=== PATIENT | female | born 1995 | race Caucasian/White ===

== ENCOUNTER 2016-05-13 21:30 | Emergency (ER) | payer MEDICAID ==
[~2016-05-13] VITALS: Ht 152.4 cm; Wt 57.5 kg
[~2016-05-13 21:30] MED LIST: FERR159T PO
[2016-05-13 22:09] VITALS: Ht 152.4 cm; Wt 57.5 kg
[2016-05-14 02:03] LABS: ADD SCAN DIFF NO
[2016-05-14 02:08] LABS: ABNORMAL IP MESSAGE 1; BASOPHIL # 0.1 10^3/ul (0.0-0.1); BASOPHILS % 0.4 % (0.0-2.0); EOSINOPHILS # 0.5 10^3/ul (0.0-0.5); EOSINOPHILS % 4.1 % (0.0-7.0); HEMOGLOBIN 12.1 g/dl (12.0-16.0); LYMPHOCYTES # 1.9 10^3/ul (0.8-2.9); LYMPHOCYTES % 15.2 % (15.0-51.0); MEAN CORPUSCULAR HEMOGLOBIN 31.8 pg (29.0-33.0); MEAN CORPUSCULAR HGB CONC 35.6 g/dl (32.0-37.0); MEAN CORPUSCULAR VOLUME 89.5 fl (82.0-101.0); MEAN PLATELET VOLUME 10.5 fl (7.4-10.4); MONOCYTE # 1.5 10^3/ul (0.3-0.9); MONOCYTES % 12.1 % (0.0-11.0); NEUTROPHIL # 8.4 10^3/ul (1.6-7.5); NEUTROPHILS % 67.7 % (39.0-77.0); PLATELET COUNT 257 10^3/UL (140-415); RED CELL DISTRIBUTION WIDTH 12.6 % (11.5-14.5); WHITE BLOOD COUNT 12.5 10^3/ul (4.8-10.8)
[2016-05-14 02:19] LABS: POTASSIUM 4.6 mmol/L (3.5-5.1)
[2016-05-14 02:22] LABS: CALCIUM 9.3 mg/dl (8.4-10.2); CREATININE 0.46 mg/dl (0.44-1.00)
[2016-05-14 02:31] LABS: ADD UMIC YES; URINE BILIRUBIN (Dip) NEGATIVE (NEGATIVE); URINE BLOOD (Dip) NEGATIVE (NEGATIVE); URINE COLOR LT. YELLOW (YELLOW); URINE GLUCOSE (Dip) NEGATIVE (NEGATIVE); URINE KETONES (Dip) NEGATIVE (NEGATIVE); URINE LEUKOCYTE ESTERASE (Dip) TRACE (NEGATIVE); URINE NITRITE (Dip) NEGATIVE (NEGATIVE); URINE TOTAL PROTEIN (Dip) NEGATIVE (NEGATIVE); URINE UROBILINOGEN (Dip) 0.2 E.U./dL (0.1-1.0)
[2016-05-14 02:49] LABS: URINE RBCS 0-2 /HPF (0)
[2016-05-14 02:50] LABS: BACTERIA,URINE MODERATE; SQUAMOUS EPITHELIAL CELL,UR MODERATE
--- NOTE | 2016-05-14 02:51 | RADRPT ---
PROCEDURE: ULTRASOUND OBSTETRICAL CLINICAL INDICATION: 20-year-old female with contractions. TECHNIQUE: Multiple sonographic images of the pelvis were obtained. The images were reviewed on a PACS workstation. COMPARISON: No prior studies are available for comparison. FINDINGS: There is a cystic focus within the lower uterine segment/cervix measuring approximately 3.7 x 4.0 x 4.1 cm. The cervix was not well visualized and the length was not measured. There is a single viabl e intrauterine gestation. Cardiac activity is present with 166 beats per minute. There is a variabl e presentation. Measurements were made in order to determine age. The results are as follows: BPD = 3.13 cm, HC = 11.22 cm, AC = 8.80 cm, FL = 1.78 cm. This yields and estimated gestational age of approximately 15 weeks 3 days. The estimated date of delivery is November 02, 2016. The EFW = 117 +/- 18 g. The GP is 18%. The placenta is fundal and anterior. There is no evidence for an abruption or placenta previa. There is an adequate amount of amniotic fluid. IMPRESSION: 1. Single viable intrauterine gestation of approximately 15 weeks 3 days. The estimated date of de livery is November 02, 2016. 2. The cervix length was not measured with a cystic focus of unknown etiology within the lower uter ine segment/cervical region. An incompetent cervix cannot be excluded. .Stef Goss MD, Date Time Electronically viewed and signed by .Stef Goss MD, on 05/14/2016 02:51 .M/
[2016-05-14] MEDS ORDERED: morphine 4 MG/ML VIAL IV STA (02:52)
[2016-05-14 02:58] VITALS: BP 103/63; PULSE 92; RESP 18
--- NOTE | 2016-05-14 02:59 | ERD ---
ER Documentation Chief Complaint Date/Time DATE: 05/14/16 TIME: 02:57 Chief Complaint Back pain radiating to the front for 1 day HPI This is a 20-year-old female who is approximately 15 weeks by last menstrual period who came to the emergency room today for evaluation of abdominal pain. The patient states that she is having back pain which is radiating to the front for 1 days duration. She describes as a cramping achy pain. She denies any nausea or vomiting associated with this, denies any vaginal bleeding or vaginal discharge associated with this. The patient called her SPEECH THERAPIST office who instructed her to come to the emergency room for further evaluation. ROS All systems reviewed and are negative except as per history of present illness. Medications Home Meds Reported Medications Ferrous Sulfate, Dried (Iron) 159 Mg Tablet.er, 159 MG PO DAILY 09/21/12 Allergies Allergies: Coded Allergies: No Known Drug Allergies (Verified Allergy, Mild, 08/23/12) PMhx/Soc History of Surgery: Yes (appendectomy) Anesthesia Reaction: No Hx Neurological Disorder: No Hx Respiratory Disorders: Yes (ASTHMA) Hx Cardiac Disorders: No Hx Psychiatric Problems: No Hx Miscellaneous Medical Probl: No Hx Alcohol Use: No Hx Substance Use: No Hx Tobacco Use: Yes (ex-smoker) Smoking Status: Former smoker Physical Exam Vitals Vital Signs Date Time Temp Pulse Resp B/P Pulse Ox O2 Delivery O2 Flow Rate FiO2 05/13/16 22:09 98.7 109 18 122/58 100 Physical Exam Const: No acute distress, resting comfortably Head: Atraumatic Eyes: Normal Conjunctiva ENT: Normal External Ears, Nose and Mouth. Neck: Full range of motion..~ No meningismus. Resp: Clear to auscultation bilaterally Cardio: Regular rate and rhythm, no murmurs Abd: Soft, non tender, non distended. Normal bowel sounds Skin: No petechiae or rashes Back: No midline or flank tenderness Ext: No cyanosis, or edema Neur: Awake and alert Psych: Normal Mood and Affect Result Diagram: 05/14/16 0154 05/14/164 Results 24 hrs Laboratory Tests Test 05/14/16 01:54 05/14/16 02:02 Anion Gap 17 Basophils # 0.110^3/ul Basophils % 0.4% Blood Urea Nitrogen 7mg/dl Calcium Level 9.3mg/dl Carbon Dioxide Level 26mmol/L Chloride Level 103mmol/L Creatinine 0.46mg/dl Eosinophils # 0.510^3/ul Eosinophils % 4.1% Glucose Level 79mg/dl Hematocrit 34.0% Hemoglobin 12.1g/dl Lymphocytes # 1.910^3/ul Lymphocytes % 15.2% Mean Corpuscular Hemoglobin 31.8pg Mean Corpuscular Hemoglobin Concent 35.6g/dl Mean Corpuscular Volume 89.5fl Mean Platelet Volume 10.5fl Monocytes # 1.510^3/ul Monocytes % 12.1% Neutrophils # 8.410^3/ul Neutrophils % 67.7% Nucleated Red Blood Cells # 0.010^3/ul Nucleated Red Blood Cells % 0.0/100WBC Platelet Count 10325^3/UL Potassium Level 4.6mmol/L Red Blood Count 3.8010^6/ul Red Cell Distribution Width 12.6% Sodium Level 141mmol/L White Blood Count 12.510^3/ul Urine Bacteria MODERATE Urine Bilirubin NEGATIVE Urine Clarity CLEAR Urine Color LT. YELLOW Urine Glucose NEGATIVE% Urine Hemoglobin NEGATIVE Urine Ketones NEGATIVE Urine Leukocyte Esterase TRACE Urine Microscopic RBC 0-2/HPF Urine Microscopic WBC 0-2/HPF Urine Nitrite NEGATIVE Urine Specific [place] 1.025 Urine Squamous Epithelial Cells MODERATE Urine Total Protein NEGATIVE Urine Urobilinogen 0.2 E.U./dL Urine pH 6.0 Current Medications Medications (Trade) Dose Ordered Sig/Nyla Route PRN Reason Start Time Stop Time Status Last Admin Dose Admin Morphine Sulfate (morphine) 4 mg ONCE STAT IV 05/14/16 02:52 05/14/16 02:54 DC Procedures/MDM Transvaginal ultrasound: 1. Single viable intrauterine gestation of approximately 15 weeks 3 days. The estimated date of delivery is November 02, 2016. 2. The cervix length was not measured with a cystic focus of unknown etiology within the lower uterine segment/cervical region. An incompetent cervix cannot be excluded. This 20-year-old female presents to the emergency room for evaluation of abdominal cramping. The patient denied any bleeding. The patient was afebrile in the emergency room, vital signs are stable. Lab work was obtained including a urinalysis which is normal. This patient did have a transvaginal ultrasound which shows a single viable intrauterine gestation of 15 weeks and 3 days. The patient has had no bleeding at this time and has an appointment on November 18 with her SPEECH THERAPIST physician. I advised her to follow-up with SPEECH THERAPIST physician or return to the ER if her symptoms worsen. The patient verbalized understanding and is okay the plan of care. Departure Diagnosis: Primary Impression: Abdominal pain affecting Condition: Stable JOHNATHAN TREVINO DO May 14, 2016 02:59
== END 2016-05-14 03:03 | disposition home or self-care (01) ==
LOC: E/R 21:30
DX: O26.892 Other specified pregnancy related conditions, second trimester (principal); R10.9 Unspecified abdominal pain; O99.52 Diseases of the respiratory system complicating childbirth; J45.901 Unspecified asthma with (acute) exacerbation; Z87.891 Personal history of nicotine dependence; Z3A.15 15 weeks gestation of pregnancy
CPT/HCPCS: 76805; 80048; 81001; 85025; Z7502; 81003

== ENCOUNTER 2016-07-07 06:13 | Outpatient (CLI) | payer MEDICAID ==
[~2016-07-07] VITALS: Ht 149.9 cm; Wt 63.8 kg
[2016-07-07 06:33] VITALS: Ht 149.9 cm; Wt 63.8 kg
[2016-07-07 06:34] VITALS: BP 109/60; PULSE 95; RESP 18
[2016-07-07] MEDS ORDERED: PRENAT PO (09:20)
[2016-07-07 09:21] LABS: ADD SCAN DIFF NO
[2016-07-07] MEDS ORDERED: ALBU2.5V3 NEB (09:21)
[2016-07-07 09:24] LABS: BASOPHILS % 0.2 % (0.0-2.0); EOSINOPHILS # 0.1 10^3/ul (0.0-0.5); EOSINOPHILS % 0.6 % (0.0-7.0); HEMATOCRIT 35.4 % (37.0-47.0); HEMOGLOBIN 11.8 g/dl (12.0-16.0); LYMPHOCYTES # 0.8 10^3/ul (0.8-2.9); LYMPHOCYTES % 5.2 % (15.0-51.0); MEAN CORPUSCULAR HEMOGLOBIN 31.3 pg (29.0-33.0); MEAN CORPUSCULAR HGB CONC 33.3 g/dl (32.0-37.0); MEAN CORPUSCULAR VOLUME 93.9 fl (82.0-101.0); MONOCYTES % 6.1 % (0.0-11.0); NEUTROPHIL # 13.8 10^3/ul (1.6-7.5); PLATELET COUNT 242 10^3/UL (140-415); RED BLOOD COUNT 3.77 10^6/ul (4.20-5.40); RED CELL DISTRIBUTION WIDTH 12.9 % (11.5-14.5); WHITE BLOOD COUNT 16.1 10^3/ul (4.8-10.8)
[2016-07-07] MEDS ORDERED: BECL8.7A INH (09:26)
--- NOTE | 2016-07-07 09:36 | RADRPT ---
PROCEDURE: Limited obstetric ultrasound CLINICAL INDICATION: Pain , labor TECHNIQUE: Multiple transverse and longitudinal grayscale images of the pelvis were obtained gunter sabdominally and transvaginally.. COMPARISON: 05/14/2016 FINDINGS: The cervix is closed with a length of 5 cm. There is a single viable intrauterine gestation. Cardiac activity is present with 156 beats per min alf. There is a breech presentation. The placenta is anterior. There is no evidence for an abruption or placenta previa. RPTAT: AA IMPRESSION: Cervix length measures 5 cm. .Lencho Devries MD, Date Time Electronically viewed and signed by .Lencho Devries MD, on 07/07/2016 09:35 .S/
[2016-07-07 09:54] LABS: ADD UMIC YES; URINE BILIRUBIN (Dip) NEGATIVE (NEGATIVE); URINE BLOOD (Dip) NEGATIVE (NEGATIVE); URINE COLOR LT. YELLOW (YELLOW); URINE GLUCOSE (Dip) NEGATIVE (NEGATIVE); URINE KETONES (Dip) 15 (NEGATIVE); URINE LEUKOCYTE ESTERASE (Dip) TRACE (NEGATIVE); URINE NITRITE (Dip) NEGATIVE (NEGATIVE); URINE TOTAL PROTEIN (Dip) TRACE (NEGATIVE); URINE UROBILINOGEN (Dip) 0.2 E.U./dL (0.1-1.0)
[2016-07-07] MEDS ORDERED: LACTATED RINGER'S 1,000 ML IV ONE (10:00)
[2016-07-07 10:08] LABS: BACTERIA,URINE MANY
[2016-07-07] MEDS ORDERED: LACTATED RINGER'S 1,000 ML IV SCH (11:00)
[2016-07-07] MEDS ORDERED: CEFTRIAXONE 1 GM INJ IM ONE (12:00)
[2016-07-07] MEDS ORDERED: ONDANSETRON 4 MG INJ IV STA (12:03)
[2016-07-07] MEDS ORDERED: FAMOTIDINE 20 MG INJ IV ONE (12:30)
[2016-07-07] MEDS ORDERED: CEFTRIAXONE 1 GM/50 ML (PMX) 50 ML IVPB ONE (12:30)
[2016-07-07] MEDS ORDERED: AL HYDROX/MG HYDROX/SIMETH 30 ML CUP PO ONE (12:30)
[2016-07-07] MEDS ORDERED: SOD CHLORIDE 0.9% 1,000 ML IV SCH (12:30)
[2016-07-07] MEDS ORDERED: MEPERIDINE 50 MG INJ IV ONE (12:30)
--- NOTE | 2016-07-07 12:56 | CONS ---
Date/Time of Note Date/Time of Note DATE: 07/07/16 TIME: 10:40 Consultation Date/Type/Reason Admit Date/Time July 07, 2016 Obstetrical triage consult Reason for Consultation This patient is a 21 years old 2 para 1 with estimated due date of October 28, 2016 which makes her 23 weeks and 6 days now She came in with complaint of vomiting twice last night as well as diarrhea and right upper abdominal area pain. This patient has history of gallstones. PH:She had a ruptured appendix operated on July 2012. She has asthma under treatment with Qvar 40 mg betamethasone dipropionate also albuterol on a as needed basis. She is also taking her vitamins and irons as well .. She said she bought a hot dog in the street and few hours after eating that started having nausea and vomiting. Anyway she has an established diagnosis of cholelithiasis during this On examination she is a well-developed well-nourished lady , complaining of slight tenderness on her right upper quadrant and nausea otherwise . Her abdomen is soft no CVA tenderness. heart tone is selene. She does not have any contractions Laboratory Tests Test 07/07/16 08:49 07/07/16 09:25 White Blood Count 16.110^3/ul Red Blood Count 3.7710^6/ul Hemoglobin 11.8g/dl Hematocrit 35.4% Mean Corpuscular Volume 93.9fl Mean Corpuscular Hemoglobin 31.3pg Mean Corpuscular Hemoglobin Concent 33.3g/dl Red Cell Distribution Width 12.9% Platelet Count 75677^3/UL Mean Platelet Volume 11.0fl Neutrophils % 86.0% Lymphocytes % 5.2% Monocytes % 6.1% Eosinophils % 0.6% Basophils % 0.2% Nucleated Red Blood Cells % 0.0/100WBC Neutrophils # 13.810^3/ul Lymphocytes # 0.810^3/ul Monocytes # 1.010^3/ul Eosinophils # 0.110^3/ul Basophils # 0.010^3/ul Nucleated Red Blood Cells # 0.010^3/ul Urine Color LT. YELLOW Urine Clarity CLEAR Urine pH 6.0 Urine Specific [place] 1.025 Urine Ketones 15 Urine Nitrite NEGATIVE Urine Bilirubin NEGATIVE Urine Urobilinogen 0.2 E.U./dL Urine Leukocyte Esterase TRACE Urine Microscopic RBC 5-10/HPF Urine Microscopic WBC 10-25/HPF Urine Epithelial Cells MANY Urine Bacteria MANY Urine Hemoglobin NEGATIVE Urine Glucose NEGATIVE% Urine Total Protein TRACE Current Medications Medications (Trade) Dose Ordered Sig/Nyla Route PRN Reason Start Time Stop Time Status Last Admin Dose Admin Lactated Ringer's 1,000 ml @ 1,000 mls/hr Q1H ONCE IV 07/07/16 10:00 07/07/16 10:59 07/07/16 10:03 1,000 MLS/HR Lactated Ringer's (Lr) 1,000 ml @ 125 mls/hr Q8H IV 07/07/16 11:00 Constitutional: chills, diaphoresis, disoriented, febrile, improved, no complaints, other, poor po, requiring IVF, requiring O2 Eyes: discharge, no complaints, other, pain, redness, visual change ENT: bleeding, congestion, discharge, dysphagia, no complaints, other, pain, sore throat Respiratory: cough, no complaints, other, pain, pleuritic pain, shortness of breath, sputum, wheezing Cardiovascular: chest pain, edema, lightheadedness, no complaints, orthopenea, other, palpitations, paroxysmal nocturnal dyspnea Gastrointestinal: blood, constipation, decreased appetite, diarrhea, flatus, nausea, no complaints, other (Slight right upper quadrant tenderness), pain, passing stool, vomiting Genitourinary: other (No dysuria no hematuria), No bleeding, No discharge, No dysuria, No flank pain, No hematuria, No no complaints Musculoskeletal: other (Slight tenderness under right CVA area), No back pain, No bone/joint pain, No neck pain, No no complaints, No restricted range of motion, No swelling Skin: No bruising, No erythema, No laceration, No no complaints, No other, No pruritis, No rash, No skin lesions Neurologic: No confusion, No dizziness, No focal-weakness, No headache, No no complaints, No other, No seizure, No syncope Endocrine: No dry skin, No no complaints, No other, No polydypsia, No polyuria , No temp intolerance Lymphatic: No adenopathy, No lymphadema, No no complaints, No other, No tender nodes Psychological: No anxiety, No confusion, No depression, No nl mood/affect, No no complaints, No other, No suicidal Additional Comments Today her urine test was reported normal no evidence of infection or hematuria. Her CBC is normal except for slight anemia; hemoglobin of 11.8 hematocrit 35.4 RBC 3.77 . . On ultrasound study her cervical length is 5 cm. There is a single viable intrauterine gestation with normal cardiac activity 156 bpm in breech presentation ,placenta is anterior no evidence of abruption or previa These findings were discussed with the patient and she was offered either to go home and continue her care by her logistics management specialist's or we can send her down to emergency room to be reevaluated for cholelithiasis . She decided to go home at this time. Social History Smoking Status: Never smoker Exam/Review of Systems Vital Signs Vitals Vital Signs Date Time Temp Pulse Resp B/P Pulse Ox O2 Delivery O2 Flow Rate FiO2 07/07/16 06:34 98.9 95 18 109/60 Results Result Diagram: 07/07/16 0849 Results 24 hrs Laboratory Tests Test 07/07/16 08:49 07/07/16 09:25 White Blood Count 16.1 #H Red Blood Count 3.77 L Hemoglobin 11.8 L Hematocrit 35.4 L Mean Corpuscular Volume 93.9 Mean Corpuscular Hemoglobin 31.3 Mean Corpuscular Hemoglobin Concent 33.3 Red Cell Distribution Width 12.9 Platelet Count 242 Mean Platelet Volume 11.0 H Neutrophils % 86.0 H Lymphocytes % 5.2 L Monocytes % 6.1 Eosinophils % 0.6 Basophils % 0.2 Nucleated Red Blood Cells % 0.0 Neutrophils # 13.8 H Lymphocytes # 0.8 Monocytes # 1.0 H Eosinophils # 0.1 Basophils # 0.0 Nucleated Red Blood Cells # 0.0 Urine Color LT. YELLOW Urine Clarity CLEAR Urine pH 6.0 Urine Specific [place] 1.025 Urine Ketones 15 Urine Nitrite NEGATIVE Urine Bilirubin NEGATIVE Urine Urobilinogen 0.2 E.U./dL Urine Leukocyte Esterase TRACE H Urine Microscopic RBC 5-10 Urine Microscopic WBC 10-25 Urine Epithelial Cells MANY Urine Bacteria MANY Urine Hemoglobin NEGATIVE Urine Glucose NEGATIVE Urine Total Protein TRACE Medications Medications Current Medications Lactated Ringer's 1,000 ml @ 1,000 mls/hr Q1H ONCE IV Last administered on t 10:03; Admin Dose 1,000 MLS/HR; Start 07/07/16 at 10:00; Stop 07/07/16 at 10:59 Lactated Ringer's (Lr) 1,000 ml @ 125 mls/hr Q8H IV ; Start 07/07/16 at 11:00 CARLITA DUQUE MD July 07, 2016 12:51
[2016-07-07 16:50] VITALS: BP 124/62; PULSE 71; RESP 18
--- NOTE | 2016-07-07 17:30 | QN ---
Documentation Comment 21 y/o female at 23 weeks C/O onset of N/V and R upper quadrant pain started after ingestion of hot dog last PM. patient was unable to keep food down: has known case of gallstones . On exam patient did not have contractions and had mild R upper quadrant pain. Cx: closed Had WBC of 16 K with L shift Patient symptoms resolved by Rocephin and PO Mylanta and Pepcid Currently is able to keep food down will D/C home on low fat diet and Mylanta and Pepcid and PO Keflex LARS GONZALES MD July 07, 2016 17:30
--- NOTE | 2016-07-07 17:38 | TRIAGE ---
OB Triage Datetime Report Generated by CPN: 07/07/2016 17:38 Datetime: 07/07/2016 16:40 Stage of : OB Triage Datetime: 07/07/2016 15:15 Stage of : OB Triage Datetime: 07/07/2016 14:45 Stage of : OB Triage Datetime: 07/07/2016 14:00 Stage of : OB Triage Datetime: 07/07/2016 13:00 Stage of : OB Triage Datetime: 07/07/2016 12:00 Stage of : OB Triage Datetime: 07/07/2016 10:40 Stage of : OB Triage Datetime: 07/07/2016 10:30 Stage of : OB Triage Temperature Route: Oral Datetime: 07/07/2016 10:03 Stage of : OB Triage Pain Assessment Pain Scale: 6 Pain Presence: Constant Pain Type: Ache Pain Location: RUQ Pain Goal: 0 Pain Relief Measures: Comfort Measures (Annotations: IV HYDRATION) Datetime: 07/07/2016 09:30 Stage of : OB Triage Nausea/Vomiting: Present (Annotations: VOMITED 500 MLS OF WATER GIVEN) Datetime: 07/07/2016 09:25 Stage of : OB Triage Datetime: 07/07/2016 08:07 Stage of : OB Triage Datetime: 07/07/2016 08:00 Stage of : OB Triage Labor Evaluation Frequency: 0 Monitor Mode: External Resting Tone [place]: Relaxed Heart Rate FHR Baseline Rate: 150 Monitor Mode: External US Variability: Moderate 6-25 bpm Accelerations: 10X10 Decelerations: None Comments: APPROPRIATE FOR GA Pain Assessment Pain Scale: 7 Pain Presence: Constant Pain Type: Ache Pain Location: Abdomen Pain Goal: 0 Pain Relief Measures: Comfort Measures Pain Assessment Comments: PAIN IS EPIGASTRIC Datetime: 07/07/2016 07:00 Stage of : OB Triage Temperature Route: Oral Labor Evaluation Frequency: 0 Monitor Mode: External Resting Tone [place]: Relaxed Heart Rate FHR Baseline Rate: 150 Monitor Mode: External US Variability: Moderate 6-25 bpm Accelerations: 10X10 Decelerations: None Category: Category I Pain Assessment Pain Scale: 7 Pain Presence: Constant Pain Type: Cramping (Annotations: DIARRHEA, VOMITING, HX OF GALLSTONES) Pain Location: Abdomen Pain Relief Measures: Comfort Measures Datetime: 07/07/2016 06:30 Time of Arrival: 07/07/2016 06:10 EGA: 23.6 Arrived By: Wheelchair Arrived From: Home Chief Complaint: DIARRHEA, VOMITING X2 AT HOME(0300, 0530), GALLSTONES, ABD PAIN; ATE A HOT DOG TH AT SHE BOUGHT IN THE STREET FROM VENDOR LAST NIGHT AT 1830 Movement: Present Contractions: Denies/Absent Rupture of Membranes: Denies Vaginal Discharge: Denies Recent Sexual Intercouse: Denies Abdominal Trauma: Not Applicable Patient Complaints: Nausea; Vomiting; Epigastric Pain Additional Patient Complaints: HX OF ASTHMA Initial Plan: EFM, ASSESSMENT, CALL MD FOR ORDERS, MD IN DELIVERY Datetime: 07/07/2016 06:25 Assessment Type: Triage Maternal Assessment Level of Consciousness: Fully Conscious DTR's/Clonus: DTRs 2+; No Clonus Headache: Denies Blurred Vision: No Respiratory Effort: Unlabored; Regular Rhythm; Equal Expansion Breath Sounds, Left: Clear and Equal Breath Sounds, Right: Clear and Equal Nausea/Vomiting: Denies RUQ Epigastric Pain: Denies Lower Extremities Edema: None Upper Extremities Edema: None Facial Edema: None Fall Risk Assessment History of Falling: (0) No Secondary Diagnosis: (0) No Ambulatory Aid: (0) Bedrest/Nurse Assist IV Therapy: (0) No Gait: (0) Normal/Bedrest/Immobile Mental Status: (0) Oriented to Own Ability Fall Score: 0 Fall Risk Score Definition: No Risk: No action required
== END 2016-07-07 17:30 | disposition home or self-care (01) ==
LOC: L-D 06:13 → OBT 06:13
PROVIDERS: ATTEND Obstetrics & Gynecology
DX: O21.2 Late vomiting of pregnancy (principal); R10.11 Right upper quadrant pain; R19.7 Diarrhea, unspecified; O99.612 Diseases of the digestive system complicating pregnancy, second trimester; K80.20 Calculus of gallbladder without cholecystitis without obstruction; O60.02 Preterm labor without delivery, second trimester; O32.1XX0 Maternal care for breech presentation, not applicable or unspecified; Z3A.23 23 weeks gestation of pregnancy
CPT/HCPCS: 76817; 81001; 81003; 85025; 87086; J0696; J2175; J2405; J7030; J7120; Z7610

== ENCOUNTER 2016-09-25 15:20 | Outpatient (CLI) | payer MEDICAID ==
[~2016-09-25] VITALS: Ht 149.9 cm; Wt 71.4 kg
[~2016-09-25 15:20] MED LIST changes: +ALBU2.5V3 NEB; +BECL8.7A INH; +PRENAT PO
[2016-09-25 15:30] VITALS: Ht 149.9 cm; Wt 71.4 kg
[2016-09-25 15:31] VITALS: BP 109/65; PULSE 108
[2016-09-25] MEDS ORDERED: LACTATED RINGER'S 250 ML IV ONE (17:00)
--- NOTE | 2016-09-25 17:27 | RADRPT ---
PROCEDURE: OB ultrasound for biophysical profile CLINICAL INDICATION: Decreased movement. TECHNIQUE: Multiple sonographic images of the pelvis were obtained. Transabdominal view of the gr avid uterus are available for review. The images were reviewed on a PACS workstation. COMPARISON: None FINDINGS: breathing movement = 2/2 tone = 2/2 motion = 2/2 Quantitative amniotic fluid volume = 2/2 PETER = 13.1 cm Single live intrauterine with cardiac activity at 161 beats per minute. There is a anterior placenta without previa. IMPRESSION: 1. Single living intrauterine gestation in cephalic position. 2. Biophysical profile = 10/04. 3. PETER = 13.1 cm. RPTAT: AACC Physician Kalpana Date Time Electronically viewed and signed by Physician Kalpana on 09/25/2016 17:27 /
--- NOTE | 2016-09-25 19:13 | PN ---
Triage Information Date/Time September 25, 2016 Weeks of Gestation 35w 2d : 2 Para: 1 Diabetes: none Hypertention: none Additional information Came in for decreased movement and cramping. PMHx: Asthma. Gallstones. PSHx: Appendectomy. NKDA. Objective Vital Signs Date Time Temp Pulse Resp B/P Pulse Ox O2 Delivery O2 Flow Rate FiO2 09/25/16 15:31 98.4 108 109/65 Room Air Heart Rate: 150's Heart Rate Comments Baseline 150 bpm with accels to 170 bpm. No decels. No UC's. Contractions: None Results/Medications Imaging Results BPP 8/8. PETER 13.1 cm. Assessment/Plan A: IUP at 35w 2d. Decreased FM. P: After one liter of IVF's the baby had a much better tracing with better variability. D/C pt home. D/W pt pt the importance of hydration when it is hot outside. Keep appt at the clinic tomorrow as scheduled. NAZ HASSAN MD Sep 25, 2016 19:13
--- NOTE | 2016-09-25 19:46 | TRIAGE ---
OB Triage Datetime Report Generated by CPN: 09/25/2016 19:46 Datetime: 09/25/2016 19:17 Time of Arrival: 09/25/2016 15:15 EGA: 35.2 Arrived By: Wheelchair Arrived From: Home Chief Complaint: Decreased movement Cramping Movement: Decreased Contractions: Occasional Rupture of Membranes: Denies Vaginal Bleeding: None Vaginal Discharge: Denies Recent Sexual Intercouse: Denies Abdominal Trauma: Not Applicable Patient Complaints: Cramping; Other Time Provider Notified: 09/25/2016 15:48 Provider Notified: J CARLOS Initial Plan: BPP, PETER, IV HYDRATION Datetime: 09/25/2016 18:58 Labor Evaluation Frequency: ONE NOTED IN ONE HOUR Monitor Mode: External Duration (sec)2399: 70 Pattern: Normal: <= 5 Contractions in 10 Minutes Resting Tone [place]: Relaxed Contraction Comments: ABDOMEN SOFT TO PALPATION Heart Rate FHR Baseline Rate: 145 Monitor Mode: External US FHR Baseline Changes: No Baseline Change Variability: Moderate 6-25 bpm Accelerations: 15X15 Decelerations: None Category: Category I Datetime: 09/25/2016 17:57 Labor Evaluation Frequency: ONE NOTED IN ONE HOUR Monitor Mode: External Duration (sec)2399: 70 Pattern: Normal: <= 5 Contractions in 10 Minutes Resting Tone [place]: Relaxed Heart Rate FHR Baseline Rate: 140 Monitor Mode: External US FHR Baseline Changes: No Baseline Change Variability: Moderate 6-25 bpm Accelerations: 15X15 Decelerations: None Category: Category I Datetime: 09/25/2016 16:57 Labor Evaluation Frequency: ONE NOTED IN ONE HOUR Monitor Mode: External Duration (sec)2399: 70 Pattern: Normal: <= 5 Contractions in 10 Minutes Resting Tone [place]: Relaxed Contraction Comments: SOME SCATTERED IRRITABILITY. PT DENIES FEELING ANY DISCOMFORT AT THIS TIME. ABDOMEN SOFT TO PALPATION Heart Rate FHR Baseline Rate: 140 Monitor Mode: External US FHR Baseline Changes: No Baseline Change Variability: Moderate 6-25 bpm Accelerations: 15X15 Decelerations: None Category: Category I Datetime: 09/25/2016 15:55 Labor Evaluation Frequency: 0 Monitor Mode: External Duration (sec)2399: 0 Pattern: Normal: <= 5 Contractions in 10 Minutes Resting Tone [place]: Relaxed Contraction Comments: ABDOMEN SOFT TO PALPATION Heart Rate FHR Baseline Rate: 150 Monitor Mode: External US FHR Baseline Changes: No Baseline Change Variability: Moderate 6-25 bpm Accelerations: 15X15 Decelerations: Early Category: Category I Datetime: 09/25/2016 15:29 Assessment Type: Triage Maternal Assessment Level of Consciousness: Fully Conscious DTR's/Clonus: DTRs 2+; No Clonus Headache: Denies Blurred Vision: No Respiratory Effort: Unlabored; Regular Rhythm; Equal Expansion Breath Sounds, Left: Clear and Equal Breath Sounds, Right: Clear and Equal Nausea/Vomiting: Denies RUQ Epigastric Pain: Denies Lower Extremities Edema: None Degree: None Upper Extremities Edema: None Degree: None Facial Edema: None Fall Risk Assessment History of Falling: (0) No Secondary Diagnosis: (0) No Ambulatory Aid: (0) Bedrest/Nurse Assist IV Therapy: (0) No Gait: (0) Normal/Bedrest/Immobile Mental Status: (0) Oriented to Own Ability Fall Score: 0 Fall Risk Score Definition: No Risk: No action required Datetime: 07/07/2016 14:50 Time of Arrival: 09/25/2016 15:15 EGA: 35.2 Arrived By: Wheelchair Arrived From: Home Chief Complaint: DFM AND CRAMPING Movement: Decreased Contractions: Occasional Rupture of Membranes: Denies Vaginal Bleeding: None Vaginal Discharge: Denies Recent Sexual Intercouse: Denies Abdominal Trauma: Not Applicable Patient Complaints: Cramping Additional Patient Complaints: NONE Time Provider Notified: 09/25/2016 14:05 Provider Notified: J CARLOS Initial Plan: NST Datetime: 07/07/2016 06:30 EGA: 23.6 Datetime: 07/07/2016 06:25 Fall Score: 0 Fall Risk Score Definition: No Risk: No action required
== END 2016-09-25 19:40 | disposition home or self-care (01) ==
LOC: OBT 15:20 → L-D 15:21 → OBT 19:40
PROVIDERS: ATTEND Obstetrics & Gynecology
DX: O36.8130 Decreased fetal movements, third trimester, not applicable or unspecified (principal); Z3A.35 35 weeks gestation of pregnancy; R25.2 Cramp and spasm; O26.893 Other specified pregnancy related conditions, third trimester
CPT/HCPCS: 36415; 76818; 96360; J7120; Z7500; G0463

== ENCOUNTER 2016-10-10 14:04 | Outpatient (CLI) | payer MEDICAID ==
[~2016-10-10] VITALS: Ht 149.9 cm; Wt 73.9 kg
[2016-10-10 14:54] VITALS: Ht 149.9 cm; Wt 73.9 kg
[2016-10-10 14:55] VITALS: BP 107/58; PULSE 77
--- NOTE | 2016-10-10 15:36 | PN ---
Triage Information Date/Time October 10, 2016 Reason for visit: Uterine contractions Weeks of Gestation 37 /Para 2/para 1 Diabetes: none Hypertention: none Additional information Complaining of onset of uterine contractions this morning denies rupture of membranes or vaginal Objective Vital Signs Date Time Temp Pulse Resp B/P Pulse Ox O2 Delivery O2 Flow Rate FiO2 10/10/16 14:55 98.5 77 107/58 Heart Rate: 140's Heart Rate Comments Reactive Contractions: >10 Minutes Apart Exam Long/ closed Disposition: Discharge Assessment/Plan Patient was discharged home with labor precautions to return in case of excessive vaginal bleeding and no ruptured mental LARS GONZALES MD Oct 10, 2016 15:35
== END 2016-10-10 15:48 | disposition home or self-care (01) ==
LOC: OBT 14:04 → L-D 14:05 → OBT 15:48
PROVIDERS: ATTEND Obstetrics & Gynecology
DX: O62.9 Abnormality of forces of labor, unspecified (principal); Z3A.37 37 weeks gestation of pregnancy
CPT/HCPCS: G0463

== ENCOUNTER 2016-10-24 18:01 | Inpatient (IN) | payer MEDICAID ==
[~2016-10-24] VITALS: Ht 154.9 cm; Wt 76.4 kg
--- NOTE | 2016-10-24 20:11 | RADRPT ---
PROCEDURE: Obstetrical ultrasound for biophysical profile CLINICAL INDICATION: Biophysical profile. . TECHNIQUE: Obstetrical ultrasound of the uterus for biophysical profile. Transabdominal views are obtained. COMPARISON: 09/25/2016 FINDINGS: Single intrauterine gestation. Presentation: Cephalic. Placenta: Anterior. No evidence of placental abruption. No evidence of placenta previa. breathing movement = 2/2 tone = 2/2 motion = 2/2 PETER = 2/2 PETER = 10.6 cm heart rate: 142 beats per minute IMPRESSION: Single intrauterine gestation. Biophysical profile 10/04 RPTAT: AADD .Toy Reyes MD, MD Date Time Electronically viewed and signed by .Toy Reyes MD, on 10/24/2016 20:10 .B/
--- NOTE | 2016-10-24 21:13 | HP ---
Date/Time of Note Date/Time of Note DATE: 10/24/16 TIME: 21:11 OB - History Hx of Present Free Text/Dictation Complaint of spontaneous rupture of membrane term Estimated Due Date: Oct 28, 2016 : 2 Para: 1 Care: Good Care Ultrasounds: Normal mid trimester US Obstetrical Complications: None Medical Complications: None Past Family/Social History * Past Medical, Surgical, Family and Obstetric Histories reviewed from chart. OB Admission Exam Physical Exam HEENT: WNL Heart: Rhythm Normal Lungs: Clear, Equal Abdomen: WNL Extremities: Normal Reflexes: Normal Cervical Dilatation: 4cm Effacement: 50% Station: -3 Membranes: Intact Amniotic Fluid: Clear Heart Rate: 130's Accelerations: Accelerations Present Decelerations: No Decelerations Varibility: Moderate Contractions on Admission: < 5 Minutes Apart OB Assessment/Plan Other Assessment: Term gestation Pains Plan: Expectant Management Other plan: Seated with spontaneous labor LARS GONZALES MD Oct 24, 2016 9:13 pm
[2016-10-24] MEDS ORDERED: OXYTOCIN 30 UNITS/LR 500 ML IV SCH ×2 (22:00)
[2016-10-24] MEDS ORDERED: METHYLERGONOVINE 0.2 MG INJ IM PRN (22:00)
[2016-10-24] MEDS ORDERED: BUTORPHANOL 2 MG INJ IV PRN (22:00)
[2016-10-24] MEDS ORDERED: IBUPROFEN 600 MG TAB PO PRN (22:00)
[2016-10-24] MEDS ORDERED: AMPICILLIN 2 GM/NS (PMX) 100 ML IV ONE (22:00)
[2016-10-24] MEDS ORDERED: CARBOPROST 250 MCG INJ IM PRN (22:00)
[2016-10-24] MEDS ORDERED: LIDOCAINE 1% (MPF) 30 ML INJ INJ PRN (22:00)
[2016-10-24] MEDS ORDERED: OXYTOCIN 30 UNITS/LR 500 ML IV PRN (22:00)
[2016-10-24] MEDS ORDERED: MISOPROSTOL 200 MCG TAB PR PRN (22:00)
[2016-10-24] MEDS: LACTATED RINGER'S 1,000 ML IV SCH (22:02)
[2016-10-24 22:19] LABS: BASOPHILS % 0.3 % (0.0-2.0); EOSINOPHILS # 0.1 10^3/ul (0.0-0.5); EOSINOPHILS % 1.1 % (0.0-7.0); HEMATOCRIT 33.3 % (37.0-47.0); LYMPHOCYTES # 1.7 10^3/ul (0.8-2.9); LYMPHOCYTES % 14.1 % (15.0-51.0); MEAN CORPUSCULAR HEMOGLOBIN 28.4 pg (29.0-33.0); MEAN PLATELET VOLUME 11.2 fl (7.4-10.4); MONOCYTES % 8.2 % (0.0-11.0); NEUTROPHILS % 75.5 % (39.0-77.0); PLATELET COUNT 250 10^3/UL (140-415); RED BLOOD COUNT 3.87 10^6/ul (4.20-5.40); RED CELL DISTRIBUTION WIDTH 14.1 % (11.5-14.5)
[2016-10-24 22:34] LABS: INR 0.97; PARTIAL THROMBOPLASTIN TIME 24.7 Sec (25.0-35.0); PROTIME 12.9 Sec (12.2-14.2)
[2016-10-24] MEDS ORDERED: MINERAL OIL LIGHT 10 ML VIAL TOP ONE (23:00)
[2016-10-24] MEDS ORDERED: LACTATED RINGER'S 1,000 ML IV PRN (23:00)
[2016-10-24 23:19] VITALS: BP 109/63; PULSE 76; RESP 18
[2016-10-24 23:41] VITALS: Ht 154.9 cm; Wt 76.4 kg
[2016-10-25] MEDS ORDERED: LACTATED RINGER'S 1,000 ML IV PRN
[2016-10-25] MEDS ORDERED: LIDOCAINE 1% (MPF) 30 ML INJ INJ PRN (00:30)
[2016-10-25] MEDS ORDERED: IBUPROFEN 600 MG TAB PO PRN (00:30)
[2016-10-25] MEDS ORDERED: OXYTOCIN 30 UNITS/LR 500 ML IV SCH ×3 (00:30→13:00)
[2016-10-25] MEDS ORDERED: FENTAnyl 2MCG/ML-ROPIV 0.2% 100 ML ONE (00:44)
[2016-10-25 01:38] LABS: BARBITURATES Negative (NEGATIVE); BENZODIAZEPINES Negative (NEGATIVE); CANNABINOIDS Negative (NEGATIVE); COCAINE Negative (NEGATIVE); OPIATES Negative (NEGATIVE)
[2016-10-25] MEDS ORDERED: AMPICILLIN 1 GM/NS (PMX) 50 ML IV SCH (02:00)
--- NOTE | 2016-10-25 02:23 | TRIAGE ---
OB Triage Datetime Report Generated by CPN: 10/25/2016 02:23 Datetime: 10/25/2016 01:59 Labor Evaluation Frequency: 2-6 Monitor Mode: External Duration (sec)2399: 40-210 Quality: Moderate Pattern: Normal: <= 5 Contractions in 10 Minutes Resting Tone [place]: Relaxed Contraction Comments: UC COUPLING NOTED Heart Rate FHR Baseline Rate: 130 Monitor Mode: External US FHR Baseline Changes: No Baseline Change Variability: Moderate 6-25 bpm Accelerations: 15X15 Decelerations: None Category: Category I Datetime: 10/25/2016 01:56 Monitor Mode: External US Datetime: 10/25/2016 01:46 Monitor Mode: External US Datetime: 10/25/2016 01:43 Monitor Mode: External Monitor Mode: External US Datetime: 10/25/2016 01:35 Monitor Mode: External Monitor Mode: External US Datetime: 10/25/2016 01:02 Pain Presence: None/Denies Datetime: 10/25/2016 01:00 Labor Evaluation Frequency: 2-5 Monitor Mode: External Duration (sec)2399: 60-100 Quality: Moderate Pattern: Normal: <= 5 Contractions in 10 Minutes Resting Tone [place]: Relaxed Heart Rate FHR Baseline Rate: 130 Monitor Mode: External US FHR Baseline Changes: No Baseline Change Variability: Moderate 6-25 bpm Accelerations: 15X15 Decelerations: None Category: Category I Datetime: 10/25/2016 00:07 Pain Assessment Pain Scale: 7 Pain Presence: Intermittent Pain Type: Contraction Pain Location: Abdomen Pain Goal: 0 Pain Relief Measures: Comfort Measures Datetime: 10/25/2016 00:00 Labor Evaluation Frequency: 1-4 Monitor Mode: External Duration (sec)2399: 60-180 Quality: Moderate Pattern: Normal: <= 5 Contractions in 10 Minutes Resting Tone [place]: Relaxed Heart Rate FHR Baseline Rate: 130 Monitor Mode: External US Variability: Moderate 6-25 bpm Accelerations: 15X15 Decelerations: None Category: Category I Datetime: 10/24/2016 23:47 Vaginal Exam Dilatation (cms): 4.0 Effacement (%): 60 Station: -2 Exam By: DR WHITMAN Datetime: 10/24/2016 23:19 Assessment Type: Admission Assessment Maternal Assessment Level of Consciousness: Fully Conscious DTR's/Clonus: DTRs 2+; No Clonus Headache: Denies Blurred Vision: No Respiratory Effort: Unlabored; Regular Rhythm; Equal Expansion Breath Sounds, Left: Clear and Equal Breath Sounds, Right: Clear and Equal Nausea/Vomiting: Denies RUQ Epigastric Pain: Denies Lower Extremities Edema: Bilateral Lower Extremities Degree: 1+ Upper Extremities Edema: Bilateral Upper Extremities Degree: 1+ Facial Edema: None Fall Risk Assessment History of Falling: (0) No Secondary Diagnosis: (0) No Ambulatory Aid: (0) Bedrest/Nurse Assist IV Therapy: (20) Yes Gait: (0) Normal/Bedrest/Immobile Mental Status: (0) Oriented to Own Ability Fall Score: 20 Fall Risk Score Definition: No Risk: No action required Pain Assessment Pain Scale: 8 Pain Presence: Intermittent Pain Type: Contraction Pain Location: Abdomen Pain Goal: 0 Datetime: 10/24/2016 23:15 Time of Arrival: 10/24/2016 23:15 EGA: 39.3 Arrived By: Ambulatory Arrived From: TRIAGE Datetime: 10/24/2016 21:03 Stage of : Labor Labor Evaluation Frequency: 3-5 Monitor Mode: External Quality: Moderate Pattern: Normal: <= 5 Contractions in 10 Minutes Resting Tone [place]: Relaxed Heart Rate FHR Baseline Rate: 150 Monitor Mode: External US Variability: Moderate 6-25 bpm Accelerations: 15X15 Decelerations: None Category: Category I Vaginal Exam Dilatation (cms): 3.5 Effacement (%): 60 Station: -2 Exam By: Dr Whitman Membrane Status: Intact Vaginal Bleeding: None Cervix, Consistency: Soft Cervix, Position: Posterior Presentation 'A': Cephalic Datetime: 10/24/2016 20:46 Stage of : OB Triage Datetime: 10/24/2016 20:19 Stage of : OB Triage Labor Evaluation Frequency: 3-4 Monitor Mode: External Duration (sec)2399: 60 Quality: Moderate Pattern: Normal: <= 5 Contractions in 10 Minutes Resting Tone [place]: Relaxed Heart Rate FHR Baseline Rate: 140 Monitor Mode: External US FHR Baseline Changes: No Baseline Change Variability: Moderate 6-25 bpm Accelerations: 15X15 Decelerations: Late; Variable Category: Category II Pain Presence: Intermittent Pain Type: Contraction Pain Location: Abdomen Datetime: 10/24/2016 19:20 Stage of : OB Triage Labor Evaluation Frequency: 2-5 Monitor Mode: External Duration (sec)2399: 60 Quality: Moderate Pattern: Normal: <= 5 Contractions in 10 Minutes Resting Tone [place]: Relaxed Heart Rate FHR Baseline Rate: 140 Monitor Mode: External US FHR Baseline Changes: No Baseline Change Variability: Moderate 6-25 bpm Accelerations: 15X15 Decelerations: Late; Variable Category: Category II Pain Assessment Pain Scale: 3 Pain Presence: Intermittent Pain Type: Contraction Pain Location: Abdomen Vaginal Exam Dilatation (cms): 2.5 Effacement (%): 50 Station: -3 Exam By: S Liv Membrane Status: Intact Vaginal Bleeding: None Cervix, Consistency: Soft Cervix, Position: Posterior Presentation 'A': Cephalic Datetime: 10/24/2016 18:56 Stage of : OB Triage Datetime: 10/24/2016 18:39 Stage of : OB Triage Assessment Type: Triage Maternal Assessment Level of Consciousness: Fully Conscious DTR's/Clonus: DTRs 2+; No Clonus Headache: Denies Blurred Vision: No Respiratory Effort: Unlabored; Regular Rhythm; Equal Expansion Breath Sounds, Left: Clear and Equal Breath Sounds, Right: Clear and Equal Nausea/Vomiting: Denies RUQ Epigastric Pain: Denies Facial Edema: None Temperature Route: Axillary Fall Risk Assessment History of Falling: (0) No Secondary Diagnosis: (0) No Ambulatory Aid: (0) Bedrest/Nurse Assist IV Therapy: (0) No Gait: (0) Normal/Bedrest/Immobile Mental Status: (0) Oriented to Own Ability Fall Score: 0 Fall Risk Score Definition: No Risk: No action required Labor Evaluation Frequency: X1 Monitor Mode: External Duration (sec)2399: 50 Quality: Mild Pattern: Normal: <= 5 Contractions in 10 Minutes Resting Tone [place]: Relaxed Heart Rate FHR Baseline Rate: 145 Monitor Mode: External US Variability: Moderate 6-25 bpm Decelerations: None Pain Assessment Pain Scale: 0 Pain Presence: None/Denies Pain Type: N/A Pain Goal: 3 Pain Relief Measures: Comfort Measures Datetime: 10/10/2016 15:46 Time of Arrival: 10/24/2016 17:55 EGA: 39.3 Arrived By: Ambulatory Arrived From: Home Chief Complaint: C/O POSS SROM AT 1630, DENIES BLEEDING, OR UC'S Movement: Present Contractions: Denies/Absent Rupture of Membranes: Denies Vaginal Bleeding: None Vaginal Discharge: Denies Recent Sexual Intercouse: Denies Abdominal Trauma: Not Applicable Patient Complaints: None Initial Plan: MONITOR, ROM PLUS, NITRAZINE Datetime: 10/10/2016 15:26 Stage of : OB Triage Datetime: 10/10/2016 15:11 Stage of : OB Triage Datetime: 10/10/2016 14:48 Stage of : OB Triage Assessment Type: Triage Maternal Assessment Level of Consciousness: Fully Conscious DTR's/Clonus: DTRs 2+; No Clonus Headache: Denies Blurred Vision: No Respiratory Effort: Unlabored; Regular Rhythm; Equal Expansion Breath Sounds, Left: Clear and Equal Breath Sounds, Right: Clear and Equal Nausea/Vomiting: Denies RUQ Epigastric Pain: Denies Facial Edema: None Temperature Route: Axillary Fall Risk Assessment History of Falling: (0) No Secondary Diagnosis: (0) No Ambulatory Aid: (0) Bedrest/Nurse Assist IV Therapy: (0) No Gait: (0) Normal/Bedrest/Immobile Mental Status: (0) Oriented to Own Ability Fall Score: 0 Fall Risk Score Definition: No Risk: No action required Labor Evaluation Frequency: 0 Monitor Mode: External Pattern: Normal: <= 5 Contractions in 10 Minutes Resting Tone [place]: Relaxed Heart Rate FHR Baseline Rate: 150 Monitor Mode: External US Variability: Moderate 6-25 bpm Decelerations: None Category: Category II Pain Assessment Pain Scale: 5 Pain Presence: Intermittent Pain Type: Cramping; Contraction Pain Location: Abdomen; Back Pain Goal: 3 Pain Relief Measures: Comfort Measures Vaginal Exam Dilatation (cms): 0.0 Effacement (%): 50 Station: -2 Exam By: Good VANCE Datetime: 10/10/2016 14:46 Time of Arrival: 10/10/2016 14:00 EGA: 37.3 Arrived By: Ambulatory Arrived From: Home Chief Complaint: C/O UC'S ALL WEEKEND, DENIES LEAKING OR BLEEDING OF FLUID Movement: Present Contractions: Irregular Rupture of Membranes: Denies Vaginal Bleeding: None Vaginal Discharge: Denies Recent Sexual Intercouse: Denies Abdominal Trauma: Not Applicable Patient Complaints: Contractions; Cramping Time Provider Notified: 10/10/2016 15:30 Provider Notified: J CARLOS Initial Plan: MONITOR, VE Datetime: 09/25/2016 19:17 EGA: 35.2 Datetime: 09/25/2016 15:29 Fall Score: 0 Fall Risk Score Definition: No Risk: No action required Datetime: 07/07/2016 14:50 EGA: 35.2 Datetime: 07/07/2016 06:30 EGA: 23.6 Datetime: 07/07/2016 06:25 Fall Score: 0 Fall Risk Score Definition: No Risk: No action required
[2016-10-25] MEDS ORDERED: NALOXONE (0.4 MG/ML) INJ IV PRN (03:00)
[2016-10-25] MEDS: LACTATED RINGER'S 1,000 ML IV SCH ×3 (03:30→14:18)
[2016-10-25] MEDS: FENTAnyl 2MCG/ML-ROPIV 0.2% 100 ML BAG EPI SCH ×3 (03:30→14:02)
[2016-10-25] MEDS ORDERED: DIPHENHYDRAMINE 50 MG INJ IV PRN (05:00)
[2016-10-25] MEDS ORDERED: MINERAL OIL LIGHT 10 ML VIAL TOP ONE (11:00)
--- NOTE | 2016-10-25 15:52 | LDN ---
Date/Time of Note Date/Time of Note DATE: 10/25/16 TIME: 15:50 Delivery Summary Normal spontaneous vaginal delivery of viable infant over intact perineum Weeks of Gestation 39+ Placenta Delivered: Spontaneously, Intact & Complete Meconium: none Episiotomy: No Perineal laceration: 0 Anesthesia type: Epidural Estimated blood loss: 16531 Sponge & Needle done & correct: Yes All needle counts correct: Yes Any foreign bodies felt in the: No Problems: Infant Delivery Information Sex Sex: female Apgars 1 Minute: 8 5 Minute: 9 Suctioning Nose & mouth suctioned at oneil: Yes Delee suction performed: No Umbilical Cord Umbilical cord with: 3 Vessels Cord presentations: no nuchal cord Cord Blood was obtained: Yes Mother & Baby Disposition Disposition Mom & Baby to Maternity; Good: Yes (Mother and baby were recovered in good condition) Mom transferred to: Other (30 T) Baby to NICU: No LARS GONZALES MD Oct 25, 2016 15:52
[2016-10-25 17:44] VITALS: BP 91/53; PULSE 59; RESP 20
[2016-10-25 17:50] VITALS: BP 91/53; PULSE 59; RESP 20
[2016-10-25] MEDS ORDERED: CARBOPROST 250 MCG INJ IM PRN (18:00)
[2016-10-25] MEDS ORDERED: HYDROCODONE/APAP (5/325) TAB PO PRN ×2 (18:00)
[2016-10-25] MEDS ORDERED: OXYTOCIN 30 UNITS/LR 500 ML IV PRN (18:00)
[2016-10-25] MEDS ORDERED: LANOLIN 7 GM TUBE TOP PRN (18:00)
[2016-10-25] MEDS ORDERED: ALBUTEROL 0.083% (NEB) 2.5 MG/3 ML AMP NEB PRN (18:00)
[2016-10-25] MEDS ORDERED: WITCH HAZEL/GLYCERIN PAD PR PRN (18:00)
[2016-10-25] MEDS ORDERED: DIBUCAINE 1% 30 GM OINT PR PRN (18:00)
[2016-10-25] MEDS ORDERED: ZOLPIDEM 5 MG TAB PO PRN (18:00)
[2016-10-25] MEDS ORDERED: METHYLERGONOVINE 0.2 MG INJ IM PRN (18:00)
[2016-10-25] MEDS ORDERED: MISOPROSTOL 200 MCG TAB PR PRN (18:00)
[2016-10-25] MEDS ORDERED: BENZOCAINE 20% 56 ML SPRAY TOP PRN (18:00)
[2016-10-25] MEDS: IBUPROFEN 600 MG TAB PO SCH (18:09)
[2016-10-25] MEDS: CEPHALEXIN 500 MG CAP PO SCH (18:09)
[2016-10-25] MEDS: LACTATED RINGER'S 1,000 ML IV* SCH (19:30)
[2016-10-25 20:00] VITALS: BP 106/59; PULSE 71; RESP 18
[2016-10-25] MEDS: MOMETASONE 0.24 GM INHALER INH SCH (21:00)
[2016-10-26] MEDS: IBUPROFEN 600 MG TAB PO SCH ×5 (00:24→23:39)
[2016-10-26] MEDS: SENNA/DOCUSATE NA (8.6MG/50MG) TAB PO SCH ×3 (00:24→21:00)
[2016-10-26] MEDS: MAGNESIUM HYDROXIDE 30ML CUP PO SCH ×3 (00:24→21:00)
[2016-10-26] MEDS: CEPHALEXIN 500 MG CAP PO SCH ×5 (00:24→23:39)
[2016-10-26 04:43] VITALS: BP 88/56; PULSE 65; RESP 17
[2016-10-26 08:00] VITALS: BP 92/55; PULSE 60; RESP 16
[2016-10-26] MEDS: MOMETASONE 0.24 GM INHALER INH SCH ×2 (08:38→21:00)
[2016-10-26] MEDS: LACTATED RINGER'S 1,000 ML IV* SCH ×2 (08:39→17:37)
[2016-10-26 11:53] LABS: BASOPHILS % 0.2 % (0.0-2.0); EOSINOPHILS # 0.2 10^3/ul (0.0-0.5); EOSINOPHILS % 1.2 % (0.0-7.0); HEMATOCRIT 30.7 % (37.0-47.0); HEMOGLOBIN 10.3 g/dl (12.0-16.0); LYMPHOCYTES # 1.9 10^3/ul (0.8-2.9); LYMPHOCYTES % 11.5 % (15.0-51.0); MEAN CORPUSCULAR HEMOGLOBIN 29.3 pg (29.0-33.0); MEAN CORPUSCULAR HGB CONC 33.6 g/dl (32.0-37.0); MEAN CORPUSCULAR VOLUME 87.5 fl (82.0-101.0); MEAN PLATELET VOLUME 11.4 fl (7.4-10.4); MONOCYTE # 1.3 10^3/ul (0.3-0.9); MONOCYTES % 8.1 % (0.0-11.0); NEUTROPHILS % 78.4 % (39.0-77.0); PLATELET COUNT 216 10^3/UL (140-415); RED BLOOD COUNT 3.51 10^6/ul (4.20-5.40); RED CELL DISTRIBUTION WIDTH 14.1 % (11.5-14.5); WHITE BLOOD COUNT 16.1 10^3/ul (4.8-10.8)
[2016-10-26 12:20] VITALS: BP 96/51; PULSE 57; RESP 16
--- NOTE | 2016-10-26 14:14 | DS ---
Date/Time of Note Date/Time of Note Home today or next day DATE: 10/26/16 TIME: 14:13 Obstetrical Discharge Record Final Diagnosis Final Diagnosis: Term delivered (Status post vaginal delivery) Other Final Diagnosis Status post vaginal delivery Vaginal Delivery Obstetrical Delivery: Spontaneous Complications Augmentation: Yes Condition on Discharge Physical Assessment Last Vitals: See nurse's notes Voiding: Yes Bowel Movement: Yes Breast: Soft, non-tender, Filling Fundus: Firm Abdomen and Incision: Soft bowel sounds present Episiotomy: Not applicable Perineum is clean Calf Tenderness: No Patient Condition: Good LARS GONZALES MD Oct 26, 2016 14:14
--- NOTE | 2016-10-26 14:15 | PD.PPDC ---
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
[2016-10-26] MEDS ORDERED: IBUP-1542 PO (14:16)
[2016-10-26 16:00] VITALS: BP 109/54; PULSE 68; RESP 16
[2016-10-26 20:10] VITALS: BP 106/54; PULSE 66; RESP 18
[2016-10-27 04:20] VITALS: BP 100/55; PULSE 136; RESP 18
[2016-10-27] MEDS: IBUPROFEN 600 MG TAB PO SCH ×2 (06:14→12:41)
[2016-10-27] MEDS: CEPHALEXIN 500 MG CAP PO SCH ×2 (06:14→12:41)
[2016-10-27 09:00] VITALS: BP 108/69; PULSE 71; RESP 20
[2016-10-27] MEDS: MOMETASONE 0.24 GM INHALER INH SCH (09:00)
[2016-10-27] MEDS: MAGNESIUM HYDROXIDE 30ML CUP PO SCH ×2 (09:00→09:28)
[2016-10-27] MEDS ORDERED: MEASLES,MUMPS,RUBELLA VACCINE INJ SC* ONE (09:00)
[2016-10-27] MEDS: SENNA/DOCUSATE NA (8.6MG/50MG) TAB PO SCH ×2 (09:00→09:28)
[2016-10-27] MEDS ORDERED: DIPHTH/TET/ACEL PERTUSS (ADULT) 0.5 ML VIAL IM* ONE (09:00)
[2016-10-27] MEDS ORDERED: VARICELLA VACCINE LIVE/PF 1,350 UNIT/0.5 ML ML SC* ONE (09:00)
== END 2016-10-27 15:30 | disposition home or self-care (01) | DRG 775 ==
LOC: L-D 18:01 → OBT 18:01 → L-D 18:26 → OBT 20:48 → L-D 10-25 00:40 → EDSTATUS 10-25 10:00 → PP1 10-25 17:29
PROVIDERS: ADMIT Obstetrics & Gynecology; ATTEND Obstetrics & Gynecology
PROC: 10E0XZZ Delivery of Products of Conception, External Approach (ICD-10-PCS; principal; 2016-10-25 10:00)
DX: O80 Encounter for full-term uncomplicated delivery (principal); Z37.0 Single live birth; Z3A.39 39 weeks gestation of pregnancy
CPT/HCPCS: 36415; 62319; 76818; 80307; 84112; 85025; 85610; 85730; 86592; 86900; 86901; 87340; 90715; 90716; 99464; G0463; J2590; J3010; J7120

== ENCOUNTER 2018-01-08 17:00 | Inpatient (IN) | END 2018-01-11 16:20 | disposition home or self-care (01) | DRG 392 ==

== ENCOUNTER 2018-07-06 09:20 | Emergency (ER) | payer MEDICAID ==
[~2018-07-06] VITALS: Ht 154.9 cm; Wt 83.6 kg
[~2018-07-06 09:20] MED LIST changes: +IBUP-1542 PO; +LOPE-123 PO
[2018-07-06 09:24] VITALS: BP 112/66; PULSE 68; RESP 20; Ht 154.9 cm; Wt 83.6 kg
[2018-07-06] MEDS ORDERED: NPH10OT BOTH EARS (10:09)
--- NOTE | 2018-07-06 10:14 | ERD ---
ER Documentation Chief Complaint Chief Complaint bilateral ear pain HPI 23-year-old female presents with complaint of bilateral ear pain for the past week. States that she was diagnosed with otitis media 1 week ago and treated with course of Augmentin, finished the course yesterday. Denies any discharge from her ear, mastoid tenderness, fevers, headaches. Denies medical problems. Denies allergies. ROS All systems reviewed and are negative except as per history of present illness. Medications Home Meds Active Scripts Neomycin/Polymyxin/Hydrocort* (Cortisporin* Otic) 10 Ml Susp, 4 DROP BOTH EARS QID for otitis externa, #1 EA Prov:SADIE RESENDIZ 07/06/18 Loperamide Hcl* (Loperamide Hcl*) 2 Mg Cap, 2 MG PO Q4H WHILE AWAKE PRN for DIARRHEA, #14 CAP Prov:YOGESH BRUNER MD 01/11/18 Ibuprofen* (Ibuprofen*) 600 Mg Tablet, 600 MG PO Q6, #30 TAB 0 Refills Prov:LARS GONZALES MD 10/26/16 Reported Medications Beclomethasone Dip* (Qvar 40*) 7.3 Gm Inha, 2 PUFF INH BID, #1 INHALER 07/07/16 Albuterol Sulfate* (Albuterol Sulfate* Neb) 0.083%-3 Ml Neb, 2.5 MG NEB Q3H PRN for WHEEZING AND SOB, #30 VIAL 07/07/16 Multivit/Min/Fol Ac/Iron/Pren* ( S*) 1 Tab Tab, 1 TAB PO DAILY, TAB 07/07/16 Ferrous Sulfate, Dried (Iron) 159 Mg Tablet.er, 159 MG PO DAILY 09/21/12 Allergies Allergies: Coded Allergies: No Known Drug Allergies (Verified Allergy, Mild, 07/07/16) PMhx/Soc 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 TMs are nonedematous erythematous bilaterally. Mastoids are nontender to palpation without edema or erythema bilaterally. Ear canals are erythematous with mild edema bilaterally. There are no exudates. Neck: Full range of motion. No meningismus. Resp: Clear to auscultation bilaterally Cardio: Regular rate and rhythm, no murmurs Abd: Soft, non tender, non distended. Normal bowel sounds Skin: No petechiae or rashes Back: No midline or flank tenderness Ext: No cyanosis, or edema Neur: Awake and alert Psych: Normal Mood and Affect Procedures/MDM MDM: Patient's presentation is consistent with bilateral otitis externa. There is no evidence of otitis media at this time based on patient exam. In addition patient just finished a course of Augmentin I do not feel that another course is necessary. Patient will be treated with Cortisporin drops. I low suspicion for mastoiditis, malignant otitis externa, or any other emergent condition. Patient discharged with strict ER precautions. Patient advised to follow up with PMD. All questions answered at discharge. Departure Diagnosis: Primary Impression: Otitis externa Otitis externa type: unspecified type Chronicity: acute Laterality: bilateral Qualified Codes: H60.503 - Unspecified acute noninfective otitis externa, bilateral Condition: Stable Patient Instructions: External Ear Infection (Adult) Referrals: [facility] YOU HAVE RECEIVED A MEDICAL SCREENING EXAM AND THE RESULTS INDICATE THAT YOU DO NOT HAVE A CONDITION THAT REQUIRES URGENT TREATMENT IN THE EMERGENCY DEPARTMENT. FURTHER EVALUATION AND TREATMENT OF YOUR CONDITION CAN WAIT UNTIL YOU ARE SEEN IN YOUR DOCTORS OFFICE WITHIN THE NEXT 1-2 DAYS. IT IS YOUR RESPONSIBILITY TO MAKE AN APPOINTMENT FOR FOL-UP CARE. IF YOU HAVE A PRIMARY DOCTOR --you should call your primary doctor and schedule an appointment IF YOU DO NOT HAVE A PRIMARY DOCTOR YOU CAN CALL OUR PHYSICIAN REFERRAL HOTLINE AT IF YOU CAN NOT AFFORD TO SEE A PHYSICIAN YOU CAN CHOSE FROM THE FOLLOWING [facility] [address] [facility]. [facility] [address] [facility] [facility] [address] [facility] [facility] [address] [facility] [address] [facility]. [facility]. [address] Additional Instructions: FOLLOW UP WITH YOUR PRIMARY CARE PHYSICIAN TOMORROW.Return to this facility if you are not improving as expected. SADIE RESENDIZ July 06, 2018 10:14
== END 2018-07-06 10:18 | disposition home or self-care (01) ==
LOC: FTE 09:20
DX: H60.503 Unspecified acute noninfective otitis externa, bilateral (principal); J45.909 Unspecified asthma, uncomplicated; Z87.891 Personal history of nicotine dependence
CPT/HCPCS: 99282

== ENCOUNTER 2018-08-21 17:39 | Emergency (ER) | payer MEDICAID ==
[~2018-08-21] VITALS: Ht 154.9 cm; Wt 80.6 kg
[~2018-08-21 17:39] MED LIST changes: +NPH10OT BOTH EARS
[2018-08-21 17:53] VITALS: Ht 154.9 cm; Wt 80.6 kg
[2018-08-21] MEDS ORDERED: ONDA4TAB14 PO (22:33)
[2018-08-21] MEDS ORDERED: AMOX500C2 PO (22:33)
--- NOTE | 2018-08-21 22:39 | ERD ---
ER Documentation Chief Complaint Chief Complaint sore throat x3 days HPI 23-year-old female with past medical history of mild asthma who presents with complaint of sore throat over the past 3 days. Also reported subjective fevers, cough that is nonproductive and intermittent nausea as well as epigastric abdominal discomfort. Sore throat made worse by coughing. Epigastric abdominal pain described as dull achy type pain which is improved over the past day. States she has a history of strep pharyngitis and treated 3 months ago. She otherwise is without complaint denying shortness of breath, dyspnea, chest pain, urinary symptoms, flank pain, diarrhea. ROS All systems reviewed and are negative except as per history of present illness. Medications Home Meds Active Scripts Cephalexin* (Keflex*) 500 Mg Capsule, 500 MG PO BID for 10 Days, CAP Prov:LORENA LUJAN PA-C 08/21/18 Ondansetron (Ondansetron Odt) 4 Mg Tab.rapdis, 4 MG PO Q6H PRN for NAUSEA AND/OR VOMITING, #10 TAB Prov:LORENA LUJAN PA-C 08/21/18 Neomycin/Polymyxin/Hydrocort* (Cortisporin* Otic) 10 Ml Susp, 4 DROP BOTH EARS QID for otitis externa, #1 EA Prov:SADIE RESENDIZ 07/06/18 Loperamide Hcl* (Loperamide Hcl*) 2 Mg Cap, 2 MG PO Q4H WHILE AWAKE PRN for DIARRHEA, #14 CAP Prov:YOGESH BRUNER MD 01/11/18 Ibuprofen* (Ibuprofen*) 600 Mg Tablet, 600 MG PO Q6, #30 TAB 0 Refills Prov:LARS GONZALES MD 10/26/16 Reported Medications Beclomethasone Dip* (Qvar 40*) 7.3 Gm Inha, 2 PUFF INH BID, #1 INHALER 07/07/16 Albuterol Sulfate* (Albuterol Sulfate* Neb) 0.083%-3 Ml Neb, 2.5 MG NEB Q3H PRN for WHEEZING AND SOB, #30 VIAL 07/07/16 Multivit/Min/Fol Ac/Iron/Pren* ( S*) 1 Tab Tab, 1 TAB PO DAILY, TAB 07/07/16 Ferrous Sulfate, Dried (Iron) 159 Mg Tablet.er, 159 MG PO DAILY 09/21/12 Allergies Allergies: Coded Allergies: No Known Drug Allergies (Verified Allergy, Mild, 07/07/16) PMhx/Soc 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 ) Anesthesia Reaction: No Hx Neurological Disorder: No Hx Respiratory Disorders: Yes (Asthma ) Hx Cardiac Disorders: No Hx Psychiatric Problems: No Hx Miscellaneous Medical Probl: No Hx Alcohol Use: No Hx Substance Use: No Hx Tobacco Use: No (ex-smoker) Smoking Status: Never smoker FmHx Family History: No diabetes, No coronary disease, No other Physical Exam Vitals Vital Signs Date Temp Pulse Resp B/P (MAP) Pulse Ox O2 O2 Flow FiO2 Time Delivery Rate 08/21/18 99.1 67 20 133/77 97 17:53 (95) Physical Exam Const: No acute distress Head: Atraumatic Eyes: Normal Conjunctiva ENT: Normal External Ears, Nose and Mouth. Neck: Full range of motion. No meningismus. Resp: Clear to auscultation bilaterally Cardio: Regular rate and rhythm, no murmurs Abd: Soft and obese, non tender, non distended. Normal bowel sounds. Skin: No petechiae or rashes Back: No midline or flank tenderness Ext: No cyanosis, or edema Neur: Awake and alert Psych: Normal Mood and Affect Results 24 hrs Laboratory Tests Test 08/21/18 22:48 Urine Color YELLOW Urine Clarity CLOUDY Urine pH 6.0 Urine Specific [place] 1.015 Urine Ketones 2+ mg/dL Urine Nitrite NEGATIVE mg/dL Urine Bilirubin NEGATIVE mg/dL Urine Urobilinogen NEGATIVE mg/dL Urine Leukocyte Esterase 2+ Melisa/ul Urine Microscopic RBC 5 /HPF Urine Microscopic WBC 22 /HPF Urine Squamous Epithelial Cells MODERATE /HPF Urine Bacteria FEW /HPF Urine Mucus MODERATE /HPF Urine Hemoglobin 2+ mg/dL Urine Glucose NEGATIVE mg/dL Urine Total Protein NEGATIVE mg/dl Current Medications Medications Dose Sig/Nyla Start Time Status Last (Trade) Ordered Route PRN Stop Time Admin Dose Reason Admin 10 mg ONCE ONCE 08/21/18 DC 08/21/18 Dexamethasone IM 23:00 22:49 (Decadron) 08/21/18 23:01 Procedures/MDM 23 yo pt presenting with worsening of sore throat with reassuring exam. Symptoms likely secondary to strep pharyngitis given exam. No history of immunocompromise. Nontoxic appearance. Patient euvolemic with no trismus and no airway compromise. Able to tolerate PO. 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 She has complaint of epigastric mariusz pain but has a reassuring exam without any tenderness to palpation area indicated. UA plus leukocyte esterase, bacteria Discharge with a course of Keflex antibiotic for 10-day course to treat both UTI as well as presumed strep pharyngitis Plan to DC home with prompt outpatient PCP follow up; return precautions discussed Departure Diagnosis: Primary Impression: Sore throat Condition: Stable Patient Instructions: Self-Care for Sore Throats Referrals: [facility] YOU HAVE RECEIVED A MEDICAL SCREENING EXAM AND THE RESULTS INDICATE THAT YOU DO NOT HAVE A CONDITION THAT REQUIRES URGENT TREATMENT IN THE EMERGENCY DEPARTMENT. FURTHER EVALUATION AND TREATMENT OF YOUR CONDITION CAN WAIT UNTIL YOU ARE SEEN IN YOUR DOCTORS OFFICE WITHIN THE NEXT 1-2 DAYS. IT IS YOUR RESPONSIBILITY TO MAKE AN APPOINTMENT FOR FOLOW-UP CARE. IF YOU HAVE A PRIMARY DOCTOR --you should call your primary doctor and schedule an appointment IF YOU DO NOT HAVE A PRIMARY DOCTOR YOU CAN CALL OUR PHYSICIAN REFERRAL HOTLINE AT IF YOU CAN NOT AFFORD TO SEE A PHYSICIAN YOU CAN CHOSE FROM THE FOLLOWING [facility] [address] [facility]. [facility] [address] [facility] [facility] [address] [facility] [facility] [address] [facility]. [facility] [address] [facility]. [facility]. [address] Additional Instructions: Call your primary care doctor TOMORROW for an appointment during the next 2-3 days.See the doctor sooner or return here if your condition worsens before your appointment time. LORENA LUJAN PA-C Aug 21, 2018 22:39
[2018-08-21] MEDS ORDERED: DEXAMETHASONE 10 MG/ML 1 ML INJ IM ONE (23:00)
[2018-08-21] MEDS ORDERED: CEPH-443 PO (23:08)
[2018-08-21 23:20] VITALS: BP 128/70; PULSE 69; RESP 16
== END 2018-08-21 23:20 | disposition home or self-care (01) ==
LOC: FTE 17:39
DX: J02.9 Acute pharyngitis, unspecified (principal); J45.909 Unspecified asthma, uncomplicated
CPT/HCPCS: 81001; 96372; J1100; Z7502